=== PATIENT | male | born 1965 | race African-American/Black ===

== ENCOUNTER 2018-09-17 13:21 | Inpatient (IN) | payer SELFPAY ==
[2018-09-17] MEDS ORDERED: Potassium Chloride 20 MEQ TAB ONE (14:06)
[2018-09-17 15:12] LABS: Anion Gap 16 mmol/L (10-20); BUN (Urea Nitrogen) 14 mg/dL (8.4-25.7); Calc. Creatinine Clearance 0 mL/min (70-130); Calcium 9.1 mg/dL (7.8-10.44); Carbon Dioxide 21 mmol/L (22-29); Chloride 102 mmol/L (98-107); Estimated GFR-MDRD Greater than 90; Glucose 300 mg/dL (70-105); Hemoglobin A1c 10.9 % (4.0-6.0); Magnesium 2.2 mg/dL (1.6-2.6); Phosphorus 2.4 mg/dL (2.3-4.7); Potassium 4.1 mmol/L (3.5-5.1); Sodium 135 mmol/L (136-145)
[2018-09-17] MEDS ORDERED: Insulin Glargine 10 UNITS in Pre-Filled Syringe 1 EACH SC SCH (15:15)
[2018-09-17 15:19] LABS: Troponin I Less than 0.010 ng/mL (< 0.028)
[2018-09-17] MEDS ORDERED: Ondansetron ODT 4 MG TAB SL PRN (16:16)
[2018-09-17] MEDS ORDERED: Ondansetron PF 4 MG/2 ML Vial IVP PRN (16:16)
[2018-09-17] MEDS ORDERED: Acetaminophen 325 MG TAB PO PRN (16:22)
[2018-09-17] MEDS ORDERED: Dextrose 5% in Water 1,000 ML IV PRN (16:22)
[2018-09-17] MEDS ORDERED: Dextrose 50% Abboject 50 ML SYRINGE SLOW IVP PRN (16:22)
[2018-09-17] MEDS ORDERED: Senokot S 8.6-50 MG TAB PO PRN (16:22)
[2018-09-17 16:26] VITALS: BMI 27.8
[2018-09-17] MEDS ORDERED: hydrALAZINE 20 MG/ML VIAL SLOW IVP PRN (18:23)
[2018-09-17] MEDS ORDERED: glipiZIDE 5 MG TAB PO SCH (18:30)
[2018-09-17] MEDS: Sodium Chloride 0.9% 1,000 ML IV SCH (18:37)
[2018-09-17] MEDS: glipiZIDE 5 MG TAB PO SCH (18:43)
--- NOTE | 2018-09-17 20:36 | HP ---
DATE OF ADMISSION: 09/17/2018 PRIMARY CARE PHYSICIAN: Christina Ta PA-C. CHIEF COMPLAINT: Generalized weakness. HISTORY OF PRESENT ILLNESS: The patient is a 53-year-old male with hypertension and family history o f diabetes, presented to [facility] with above complaints. Over the last 2 weeks or so, the patient has been feeling generally weak and fatigued. His symptoms are progressively getting wo rse. He also complains of polyuria, polydipsia as well as polyphagia. No fever or chills reported. No chest pain, shortness of breath, palpitations, dysuria, hematuria or urgency reported. In the emergency room, his initial vital signs showed temperature 98.7, respirations 20, pulse of 87, blood pressure 104/70 with O2 saturation of 94% on room air. His labs were consistent with blood gl ucose of 468 with bicarbonate of 17 and a urinalysis showing ketones. He was started on insulin drip and was transferred to this facility. PAST MEDICAL HISTORY: Hypertension. PAST SURGICAL HISTORY: Reviewed with the patient and none. ALLERGIES: No known drug allergies. CURRENT HOME MEDICATIONS: Lisinopril 5 mg daily. SOCIAL HISTORY: The patient currently smokes up to one and a half packs a day for many years. He de nies any alcohol or drug use. FAMILY HISTORY: Positive for diabetes. REVIEW OF SYSTEMS: The following complete review of systems was negative, unless otherwise mentioned in the HPI or below: Constitutional: Weight loss or gain, ability to conduct usual activities. Sk in: Rash, itching. Eyes: Double vision, pain. ENT/Mouth: Nose bleeding, neck stiffness, pain, te nderness. Cardiovascular: Palpitations, dyspnea on exertion, orthopnea. Respiratory: Shortness of breath, wheezing, cough, hemoptysis, fever or night sweats. Gastrointestinal: Poor appetite, abdom inal pain, heartburn, nausea, vomiting, constipation, or diarrhea. Genitourinary: Urgency, frequenc y, dysuria, nocturia. Musculoskeletal: Pain, swelling. Neurologic/Psychiatric: Anxiety, depressio n. Allergy/Immunologic: Skin rash, bleeding tendency. PHYSICAL EXAMINATION: VITAL SIGNS: As discussed above. GENERAL: A 53-year-old male, in no apparent distress, feels better with IV fluids. HEENT: Head atraumatic, normocephalic. Sclerae are anicteric. Dry mucous membranes, no oral lesion . NECK: Supple, no JVD, no carotid bruit. LUNGS: Clear to auscultation bilaterally. HEART: S1, S2 present. Regular rate and rhythm. No murmur, rubs, or gallops appreciated. ABDOMEN: Soft, nontender, bowel sounds present. EXTREMITIES: No edema or calf tenderness. NEUROLOGIC: Grossly nonfocal, moves all four extremities. PSYCHIATRY: Alert, awake, oriented x3. SKIN: Warm and dry. LYMPH NODES: No palpable lymph nodes in the neck. PERIPHERAL VASCULAR: Radial pulses palpable bilaterally. MUSCULOSKELETAL: No joint swelling or tenderness. LABORATORY AND X-RAY FINDINGS: Hemoglobin A1c 10.9. Repeat bicarbonate of 21 with anion gap of 16. WBC 9.3 with hemoglobin 15.3, platelet count of 163. Chest x-ray by my review was negative for infiltrate. IMPRESSION: 1. New onset diabetes mellitus type 2 with diabetic ketoacidosis. 2. Dehydration. 3. Metabolic acidosis secondary to diabetic ketoacidosis. 4. Hyponatremia secondary to hyperglycemia. 5. Tobacco dependence. 6. Hypertension. PLAN: The patient will be monitored on the medical floor. Insulin drip will be discontinued. The p atient will be started on sliding scale along with long-acting insulin. Insulin teaching. IV fluids . Consult dietitian. We will resume lisinopril in 1-2 days. We will recheck labs in a.m. The neftali ent was extensively counseled on diabetes mellitus type 2. Tobacco cessation was emphasized. Plan o f care was discussed with the patient in detail. He stated understanding. At this time, the patient prefers to go home on oral hypoglycemic agent. He is refusing insulin at d ischarge.
[2018-09-17] MEDS: Famotidine 20 MG TAB PO SCH (20:53)
[2018-09-17] MEDS: Insulin Regular 300 UNITS/3 ML VIAL SC PRN (20:56)
[2018-09-17] MEDS ORDERED: Insulin Glargine 10 UNITS in Pre-Filled Syringe SC SCH (21:00)
[2018-09-17] MEDS ORDERED: NPH, Human Insulin Isophane 300 UNIT/3 ML VIAL SC SCH (21:00)
[2018-09-18] MEDS: Sodium Chloride 0.9% 1,000 ML IV SCH ×5 (00:28→23:55)
[2018-09-18] MEDS: Insulin Regular 300 UNITS/3 ML VIAL SC PRN ×4 (06:09→20:32)
[2018-09-18 07:21] LABS: Anion Gap 14 mmol/L (10-20); BUN (Urea Nitrogen) 9 mg/dL (8.4-25.7); Calc. Creatinine Clearance 111 mL/min (70-130); Calcium 9.2 mg/dL (7.8-10.44); Carbon Dioxide 25 mmol/L (22-29); Chloride 99 mmol/L (98-107); Estimated GFR-MDRD Greater than 90; Glucose 375 mg/dL (70-105); Magnesium 1.9 mg/dL (1.6-2.6); Potassium 3.9 mmol/L (3.5-5.1); Sodium 134 mmol/L (136-145)
[2018-09-18] MEDS ORDERED: NPH, Human Insulin Isophane 300 UNIT/3 ML VIAL SC SCH ×5 (09:00→22:00)
[2018-09-18] MEDS: Famotidine 20 MG TAB PO SCH ×2 (09:05→20:27)
[2018-09-18] MEDS: glipiZIDE 5 MG TAB PO SCH (15:28)
--- NOTE | 2018-09-18 17:45 | PDOC.PN ---
- Subjective Encounter Start Date: 09/18/18 Encounter Start Time: 15:00 Patient seen and examined for DKA/New DM2. No new complaints. No overnight events - Objective Resuscitation Status: Resuscitation Status FULL:Full Resuscitation MAR Reviewed: Yes Vital Signs & Weight: Vital Signs (12 hours) Temp Pulse Resp BP Pulse Ox 09/18/18 15:23 98 F 87 18 123/80 95 09/18/18 12:00 98 F 82 19 130/87 97 09/18/18 08:00 94 L Weight Weight 211 lb I&O: 09/17/18 09/18/18 09/19/18 06:59 06:59 06:59 Intake Total 3170 Balance 3170 Result Diagrams: 09/19/18 03:48 Additional Labs: Accuchecks 09/18/18 09/18/18 09/18/18 15:22 11:42 04:34 POC Glucose 360 H 386 H 321 H 09/17/18 09/17/18 19:44 13:25 POC Glucose 438 H 275 H Phys Exam - Physical Examination Constitutional: NAD Respiratory: no wheezing, no rhonchi Cardiovascular: RRR, no rub Gastrointestinal: soft, positive bowel sounds Musculoskeletal: no edema Neurological: moves all 4 limbs Dx/Plan - Plan DVT proph w/SCDs IMPRESSION: 1. New onset diabetes mellitus type 2 with diabetic ketoacidosis. Sugars still elevated 2. Dehydration. 3. Metabolic acidosis secondary to diabetic ketoacidosis. 4. Hyponatremia secondary to hyperglycemia. 5. Tobacco dependence. 6. Hypertension. PLAN: Increase NPH dose Cont Sliding scale Cont Glipizide Add Metformin in AM AM labs Review of Systems - Review of Systems Cardiovascular: negative: chest pain, palpitations, orthopnea, paroxysmal nocturnal dyspnea, edema, light headedness, other Gastrointestinal: negative: Nausea, Vomiting, Abdominal Pain, Diarrhea, Constipation, Melena, Hematochezia, Other - Medications/Allergies Allergies/Adverse Reactions: Allergies Allergy/AdvReac Type Severity Reaction Status Date / Time No Known Drug Allergies Allergy Verified 09/17/18 16:37 Medications: Current Medications Acetaminophen (Tylenol) 650 mg PO Q4H PRN PRN Reason: Headache/Fever/Mild Pain (1-3) Dextrose/Water (Dextrose 50%) 25 gm SLOW IVP PRN PRN PRN Reason: Hypoglycemia Famotidine (Pepcid) 20 mg PO BID [facility] Last Admin: 09/18/18 09:05 Dose: 20 mg Glipizide (Glucotrol) 5 mg PO BID-AC [facility] Last Admin: 09/18/18 15:28 Dose: 5 mg Glucagon (Glucagon) 1 mg IM PRN PRN PRN Reason: Hypoglycemia Hydralazine HCl (Apresoline) 10 mg SLOW IVP Q4H PRN PRN Reason: SBP Greater Than 180 Dextrose/Water (D5w) 1,000 mls @ 0 mls/hr IV .Q0M PRN PRN Reason: Hypoglycemia Sodium Chloride (Normal Saline 0.9%) 1,000 mls @ 100 mls/hr IV .Q10H [facility] Last Admin: 09/18/18 15:30 Dose: 1,000 mls Insulin Human NPH (Humulin N) 15 unit SC BID [facility] Insulin Human Regular (Humulin R) 0 units SC .MODERATE SLIDING SC PRN PRN Reason: Moderate Correctional Scale Last Admin: 09/18/18 11:55 Dose: 10 unit Insulin Human Regular (Humulin R) 0 units SC .BEDTIME SLIDING SC PRN PRN Reason: Bedtime Correctional Scale Last Admin: 09/17/18 20:56 Dose: 5 unit Senna/Docusate Sodium (Senokot S) 2 tab PO BID PRN PRN Reason: Constipation
[2018-09-19 04:27] LABS: Anion Gap 9 mmol/L (10-20); BUN (Urea Nitrogen) 6 mg/dL (8.4-25.7); Calc. Creatinine Clearance 159 mL/min (70-130); Calcium 8.8 mg/dL (7.8-10.44); Carbon Dioxide 28 mmol/L (22-29); Chloride 102 mmol/L (98-107); Estimated GFR-MDRD Greater than 90; Glucose 130 mg/dL (70-105); Potassium 3.2 mmol/L (3.5-5.1); Sodium 136 mmol/L (136-145)
[2018-09-19] MEDS ORDERED: NPH, Human Insulin Isophane 300 UNIT/3 ML VIAL SC SCH ×3 (09:00→21:00)
[2018-09-19] MEDS: glipiZIDE 5 MG TAB PO SCH ×2 (09:01→17:35)
[2018-09-19] MEDS: Famotidine 20 MG TAB PO SCH ×2 (09:02→21:21)
[2018-09-19] MEDS: metFORMIN 500 MG TAB PO SCH ×2 (09:02→17:35)
[2018-09-19] MEDS: Potassium Chloride 20 MEQ TAB PO SCH ×2 (09:11→17:35)
[2018-09-19] MEDS: Insulin Regular 300 UNITS/3 ML VIAL SC PRN ×3 (12:41→21:28)
--- NOTE | 2018-09-19 18:01 | PDOC.PN ---
- Subjective Encounter Start Date: 09/19/18 Encounter Start Time: 13:30 Patient seen and examined for new onset DM2 with DKA. No new complaints. No overnight events - Objective Resuscitation Status: Resuscitation Status FULL:Full Resuscitation MAR Reviewed: Yes Vital Signs & Weight: Vital Signs (12 hours) Temp Pulse Resp BP Pulse Ox 09/19/18 16:00 98.5 F 96 18 125/75 97 09/19/18 12:00 98.3 F 96 18 124/85 97 09/19/18 08:00 95 09/19/18 07:58 98.2 F 95 18 132/86 95 Weight Weight 211 lb I&O: 09/18/18 09/19/18 09/20/18 06:59 06:59 06:59 Intake Total 3170 1245 Balance 3170 1245 Result Diagrams: 09/19/18 03:48 Additional Labs: Accuchecks 09/19/18 09/19/18 09/19/18 16:33 11:34 04:28 POC Glucose 259 H 357 H 143 H 09/18/18 09/18/18 09/18/18 23:58 22:08 19:52 POC Glucose 201 H 271 H 440 H Phys Exam - Physical Examination Constitutional: NAD Respiratory: no wheezing, no rhonchi Cardiovascular: RRR, no rub Gastrointestinal: soft Musculoskeletal: no edema Neurological: moves all 4 limbs Dx/Plan - Plan DVT proph w/SCDs 1. New onset diabetes mellitus type 2 with diabetic ketoacidosis. 2. Dehydration. 3. Metabolic acidosis secondary to diabetic ketoacidosis. 4. Hyponatremia secondary to hyperglycemia. 5. Tobacco dependence. 6. Hypertension/Hypokalemia. PLAN: Increase NPH dose to 20 unit in AM and 15 unit HS Cont Sliding scale Cont Glipizide with Metformin Replace Potassium AM labs DC in 24 hr if sugars better controlled. Review of Systems - Review of Systems Respiratory: negative: Cough, Dry, Shortness of Breath, Hemoptysis, SOB with Excertion, Pleuritic Pain, Sputum, Wheezing Cardiovascular: negative: chest pain, palpitations, orthopnea, paroxysmal nocturnal dyspnea, edema, light headedness, other - Medications/Allergies Allergies/Adverse Reactions: Allergies Allergy/AdvReac Type Severity Reaction Status Date / Time No Known Drug Allergies Allergy Verified 09/17/18 16:37 Medications: Current Medications Acetaminophen (Tylenol) 650 mg PO Q4H PRN PRN Reason: Headache/Fever/Mild Pain (1-3) Last Admin: 09/18/18 20:35 Dose: 650 mg Dextrose/Water (Dextrose 50%) 25 gm SLOW IVP PRN PRN PRN Reason: Hypoglycemia Famotidine (Pepcid) 20 mg PO BID [facility] Last Admin: 09/19/18 09:02 Dose: 20 mg Glipizide (Glucotrol) 5 mg PO BID-[facility] Last Admin: 09/19/18 17:35 Dose: 5 mg Glucagon (Glucagon) 1 mg IM PRN PRN PRN Reason: Hypoglycemia Hydralazine HCl (Apresoline) 10 mg SLOW IVP Q4H PRN PRN Reason: SBP Greater Than 180 Dextrose/Water (D5w) 1,000 mls @ 0 mls/hr IV .Q0M PRN PRN Reason: Hypoglycemia Insulin Human NPH (Humulin N) 20 unit SC QAM-[facility] Insulin Human NPH (Humulin N) 15 unit SC [facility] Insulin Human Regular (Humulin R) 0 units SC .MODERATE SLIDING SC PRN PRN Reason: Moderate Correctional Scale Last Admin: 09/19/18 17:36 Dose: 6 unit Insulin Human Regular (Humulin R) 0 units SC .BEDTIME SLIDING SC PRN PRN Reason: Bedtime Correctional Scale Last Admin: 09/18/18 20:32 Dose: 5 unit Metformin HCl (Glucophage) 500 mg PO BID-[facility] Last Admin: 09/19/18 17:35 Dose: 500 mg Potassium Chloride (K-Dur) 20 meq PO BID-[facility] Last Admin: 09/19/18 17:35 Dose: 20 meq Senna/Docusate Sodium (Senokot S) 2 tab PO BID PRN PRN Reason: Constipation
[2018-09-20] MEDS: Insulin Regular 300 UNITS/3 ML VIAL SC PRN ×3 (02:39→12:30)
[2018-09-20 04:56] LABS: Anion Gap 12 mmol/L (10-20); BUN (Urea Nitrogen) 6 mg/dL (8.4-25.7); Calc. Creatinine Clearance 121 mL/min (70-130); Calcium 9.4 mg/dL (7.8-10.44); Carbon Dioxide 26 mmol/L (22-29); Chloride 100 mmol/L (98-107); Estimated GFR-MDRD Greater than 90; Glucose 352 mg/dL (70-105); Potassium 3.8 mmol/L (3.5-5.1); Sodium 134 mmol/L (136-145)
[2018-09-20] MEDS ORDERED: NPH, Human Insulin Isophane 300 UNIT/3 ML VIAL SC SCH (08:00)
[2018-09-20] MEDS: Famotidine 20 MG TAB PO SCH (08:00)
[2018-09-20] MEDS: glipiZIDE 5 MG TAB PO SCH (08:01)
[2018-09-20] MEDS: Potassium Chloride 20 MEQ TAB PO SCH (08:01)
[2018-09-20] MEDS: metFORMIN 500 MG TAB PO SCH (08:01)
--- NOTE | 2018-09-20 12:05 | DIS ---
DATE OF ADMISSION: 09/17/2018 DATE OF DISCHARGE: 09/20/2018 DISCHARGE DIAGNOSES: 1. Diabetic ketoacidosis, resolving. 2. New onset diabetes mellitus type 2, insulin requiring. 3. Dehydration secondary to diabetic ketoacidosis, resolved. 4. Metabolic acidosis secondary to diabetic ketoacidosis, resolved. 5. Hyponatremia secondary to hyperglycemia, resolved. 6. Tobacco abuse. 7. Hypertension, stable. CONSULTATIONS: None. PERTINENT LABORATORY AND X-RAY FINDINGS: Sodium ranged between 134-136, hemoglobin A1c 10.9, calcium 9.4, magnesium level ranged between 1.9-2.2. Portable chest x-ray dated 09/17/2018 showed no acute cardiopulmonary process. HOSPITAL COURSE: The patient was initially admitted after presenting with generalized weakness with hyperglycemia with initial blood pressures in the upper 400 range. The patient was also noted with m etabolic acidosis and ketonuria consistent with diabetic ketoacidosis. The patient was placed on ins ulin infusion and given aggressive IV fluid hydration. The patient was titrated on his diabetic mayte men throughout the hospital course converting to subcutaneous insulin regimen with labile glucose bi ues noted. The patient was given extensive diabetic education and teaching during this hospital cour se as well as administration of subcutaneous insulin. The patient was also given a dietary consult r egarding outpatient management and resources for diabetic control after discharge. The patient overa ll clinically stabilized with supportive management, IV fluids and titration of subcutaneous insulin dosing. I have examined the patient at the time of discharge and discussed followup instructions. T he patient is overall clinically stable and ready for discharge on 09/20/2018. DISCHARGE MEDICATIONS: 1. Lisinopril 5 mg p.o. daily. 2. Glipizide 5 mg p.o. b.i.d. 3. Novolin 70/30, 25 units subcutaneously q.a.m. and 20 units subcutaneously at bedtime. 4. Metformin 1000 mg p.o. b.i.d. FOLLOWUP: The patient will follow up with Christina Ta at [facility] in [place], [place]. CONDITION ON DISCHARGE: Stable. ACTIVITY: Ad tiesha. DIET: ADA. CODE STATUS: Full. DISPOSITION: Discharged home 09/20/2018.
[2018-09-20 12:48] VITALS: BP 114/82; TEMP 97.2
== END 2018-09-20 15:31 | disposition home or self-care (01) | DRG 638 ==
LOC: ERS 13:21 → T4-B 14:33
PROVIDERS: ADMIT Internal Medicine; ATTEND Internal Medicine
DX: E11.10 Type 2 diabetes mellitus with ketoacidosis without coma (principal); E87.1 Hypo-osmolality and hyponatremia; I10 Essential (primary) hypertension; Z79.899 Other long term (current) drug therapy; F41.9 Anxiety disorder, unspecified; F32.9 Major depressive disorder, single episode, unspecified; E86.0 Dehydration; F17.210 Nicotine dependence, cigarettes, uncomplicated; E87.6 Hypokalemia
CPT/HCPCS: 36415; 36416; 80048; 83036; 83735; 84100; 90471; 90686; 90732; 99285; G0008; G0009; J1815